=== PATIENT | male | born 1965 | race Caucasian/White ===

== ENCOUNTER 2018-01-31 19:21 | Emergency (ER) | payer BC ==
--- NOTE | 2018-01-31 21:25 | US ---
EXAMINATION TYPE: US venous doppler duplex LE RT DATE OF EXAM: 01/31/2018 8:15 PM COMPARISON: NONE CLINICAL HISTORY: Pain. Right leg swelling SIDE PERFORMED: Right TECHNIQUE: The lower extremity deep venous system is examined utilizing real time linear array sonog lyric with graded compression, doppler sonography and color-flow sonography. VESSELS IMAGED: External Iliac Vein (EIV) Common Femoral Vein Deep Femoral Vein Greater Saphenous Vein * Femoral Vein Popliteal Vein Small Saphenous Vein * Proximal Calf Veins (* superficial vessels) FINDINGS: Grayscale, color doppler, spectral doppler imaging performed of the deep veins of the lower extremities. There is normal flow, compressibility, vascular waveforms. IMPRESSION: NEGATIVE FOR DVT, RIGHT LOWER EXTREMITY.
--- NOTE | 2018-01-31 21:32 | ED ---
Lower Extremity Injury HPI - General Chief Complaint: Extremity Injury, Lower Stated Complaint: leg pain/poss blood clot Time Seen by Provider: 01/31/18 19:54 Source: patient, RN notes reviewed, old records reviewed Mode of arrival: ambulatory Limitations: no limitations - History of Present Illness Initial Comments: Patient 72-year-old male chief complaint of right leg pain. He has history of varicose veins. He feels like his right leg is swelling. He reports that it is worse when he standing for long periods of time. He does work in a place where he is always on his feet. Patient states that he's had no redness. No reason to the leg. - Related Data Home Medications Medication Instructions Recorded Confirmed Atenolol [Tenormin] 50 mg PO DAILY 12/15/14 01/31/18 Lisinopril [Prinivil] 20 mg PO DAILY 12/15/14 01/31/18 Pravastatin Sodium [Pravachol] 20 mg PO DAILY 12/15/14 01/31/18 Allergies Allergy/AdvReac Type Severity Reaction Status Date / Time No Known Allergies Allergy Verified 01/31/18 20:19 Review of Systems ROS Statement: Those systems with pertinent positive or pertinent negative responses have been documented in the HPI. ROS Other: All systems not noted in ROS Statement are negative. Past Medical History Past Medical History: Hyperlipidemia, Hypertension History of Any Multi-Drug Resistant Organisms: None Reported Past Surgical History: Heart Catheterization Additional Past Surgical History / Comment(s): vein stripping right leg Past Psychological History: No Psychological Hx Reported Smoking Status: Never smoker Past Alcohol Use History: None Reported Past Drug Use History: None Reported General Exam - General Exam Comments Initial Comments: Well appearing 52 year old male, no distress. Limitations: no limitations General appearance: alert, in no apparent distress Head exam: Present: atraumatic, normocephalic, normal inspection Eye exam: Present: normal appearance, PERRL, EOMI. Absent: scleral icterus, conjunctival injection, periorbital swelling ENT exam: Present: normal exam, mucous membranes moist Neck exam: Present: normal inspection. Absent: tenderness, meningismus, lymphadenopathy Respiratory exam: Present: normal lung sounds bilaterally. Absent: respiratory distress, wheezes, rales, rhonchi, stridor Cardiovascular Exam: Present: regular rate, normal rhythm, normal heart sounds. Absent: systolic murmur, diastolic murmur, rubs, gallop, clicks GI/Abdominal exam: Present: soft, normal bowel sounds. Absent: distended, tenderness, guarding, rebound, rigid Extremities exam: Present: normal inspection, full ROM, normal capillary refill , other (varicose veins over medial aspect of thigh and leg. ). Absent: tenderness, pedal edema, joint swelling, calf tenderness Back exam: Present: normal inspection Neurological exam: Present: alert, oriented X3, CN II-XII intact Psychiatric exam: Present: normal affect, normal mood Skin exam: Present: warm, dry, intact, normal color. Absent: rash Course Vital Signs 01/31/18 01/31/18 19:28 21:48 Temperature 98.2 F 98.4 F Pulse Rate 79 77 Respiratory 17 18 Rate Blood Pressure 146/78 144/88 O2 Sat by Pulse 98 97 Oximetry Medical Decision Making - Medical Decision Making Patient is a 52 year old male with CC of leg swelling and pain with standing. Patient has multiple varicose veins. He has normal sensation, ROM nad pulses intact. Patient US is negative for DVT. No concern for infection asskin does not show signs of cellulitis. Patient advised to follow up with vascular surgeon. Discussed using compression stockings. Return parameters discussed. - Radiology Data Radiology results: report reviewed US is negative for DVT. Disposition Clinical Impression: Varicose veins of right lower extremity Disposition: HOME SELF-CARE Condition: Good Instructions: Varicose Veins (ED) Additional Instructions: Patient advised to follow-up with primary care provider. Keep leg up and elevated. Return to emergency department if any alarming signs or symptoms occur. Is patient prescribed a controlled substance at d/c from ED?: No When asked, does pt state using other controlled substances?: No If prescribed controlled substance>3 days was MAPS reviewed?: No If opioid is for acute pain is fill amount 7 days or less?: No If Rx opioid, was Start Talking consent form obtained?: No Referrals: Skylar Galindo MD [Primary Care Provider] - 1-2 days Time of Disposition: 21:30
[2018-01-31 21:48] VITALS: BP 144/88; PULSE 77; RESP 18; TEMP 98.4
== END 2018-01-31 21:48 | disposition home or self-care (01) ==
LOC: EC 19:21
DX: I83.811 Varicose veins of right lower extremity with pain (principal); I83.891 Varicose veins of right lower extremity with other complications; E78.5 Hyperlipidemia, unspecified; I10 Essential (primary) hypertension; Z79.899 Other long term (current) drug therapy; Z95.818 Presence of other cardiac implants and grafts
CPT/HCPCS: 99284

== ENCOUNTER 2019-06-22 11:32 | Day surgery (SDC) | payer BC ==
[2019-06-20 17:25] VITALS: BMI 42.7
[2019-06-22 11:49] VITALS: RESP 18; TEMP 97.8
[2019-06-22] MEDS ORDERED: LACTATED RINGERS 1,000 ML IV SCH (11:49)
[2019-06-22] MEDS ORDERED: LIDOCAINE 1% 20 ML VIAL (10MG/ML) FOR IV START INTRADERMA PRN (11:49)
[2019-06-22] MEDS ORDERED: LACTATED RINGERS 1,000 ML IV ONE (11:49)
[2019-06-22] MEDS ORDERED: KETAMINE 10 MG/ML 20 ML VIAL ONE (12:42)
[2019-06-22] MEDS ORDERED: MIDAZOLAM 2 MG/2 ML VIAL ONE (12:42)
[2019-06-22] MEDS ORDERED: fentaNYL (PF) 50 MCG/ML 2 ML AMP ONE (12:42)
[2019-06-22] MEDS ORDERED: PHENYLEPHRINE-0.9% NACL SYG 1 MG/10 ML SYRINGE ONE (12:42)
[2019-06-22] MEDS ORDERED: PROPOFOL 10 MG/ML 20 ML VIAL IV ONE (12:42)
[2019-06-22] MEDS ORDERED: LIDOCAINE 1% INJ 10MG/ML (20 ML MDV) ONE (12:42)
[2019-06-22 13:44] VITALS: PULSE 69
--- NOTE | 2019-06-22 13:53 | P.PCN ---
Date of Procedure: 06/22/19 Description of Procedure: Brief history: Patient is a pleasant scheduled for an elective upper endoscopy as well as colonoscopy as a part of evaluation of epigastric abdominal pain and screening for malignant neoplasm of the colon. Procedure performed: Esophagogastroduodenoscopy with biopsy Colonoscopy with polypectomy and biopsy Estimated blood loss: Minimal. Preoperative diagnosis: Anesthesia: MAC Procedure: After informed consent was obtained from the patient was brought into the endoscopy unit and IV sedation was administered by anesthesia under continuous monitoring. Initially upper endoscopy was done. The Olympus GF 190 video endoscope was inserted inserted into the mouth and esophagus intubated without any difficulty and was gradually advanced into the stomach and duodenum and carefully examined. The bulb and second part of the duodenum appeared normal, With biopsies taken to rule out celiac sprue. The scope was then withdrawn into the stomach adequately insufflated with air and upon careful examination the antrum and body, cardia and fundus appeared normal, Except for some mild scattered erythema in the antrum and body suggestive of gastritis with biopsies taken. The scope was then withdrawn into the esophagus. The GE junction was located at 37 cm to the incisors and biopsied. It appeared regular with no erythema erosions or ulcerations. Rest of the esophagus appeared normal. Patient tolerated the procedure well. At this time the patient continued to remain sedation. Initial digital rectal examination was normal. Olympus CF 190 video colonoscope was then inserted into the rectum and gradually advanced to the cecum without any difficulty. The terminal ileum was intubated and appeared normal with a small benign appearing polyp removed with cold forceps. Careful examination was performed as the scope was gradually being withdrawn. The prep was excellent. The cecum, ascending colon, transverse colon, descending colon, sigmoid colon and rectum appeared normal, With biopsies taken of the right and left colon in the setting of altered bowel habits and diarrhea. Diminutive 2 mm polyp removed from the descending colon and diminutive 1 mm Polyp removed from the sigmoid colon, both with cold forceps polypectomy. Retroflexion was performed in the rectum and no lesions were noted. Patient tolerated the procedure well. Impression: 1. Mild gastritis antrum body, biopsied. Biopsies of the duodenum and GE junction. 2. Diminutive polyps removed from the descending colon and sigmoid colon with cold forceps. Benign-appearing terminal ileal polyp removed with cold forceps. Random biopsies of the right and left colon. Recommendations: Findings of this examination were discussed with the patient as well as his family. Okay to resume diet. Okay to resume medications. Follow-up with gastroenterology clinic as previously scheduled. Anticipate repeat colonoscopy in 5 years for a history of colon polyps, pending pathology from polypectomies. Await pathology from biopsies and polypectomy.
[2019-06-22 14:03] VITALS: BP 97/63
== END 2019-06-22 14:28 | disposition home or self-care (01) ==
LOC: ORWHC2ENDO 11:32
PROVIDERS: ATTEND Internal Medicine
DX: Z12.11 Encounter for screening for malignant neoplasm of colon (principal); K63.5 Polyp of colon; K29.50 Unspecified chronic gastritis without bleeding; I10 Essential (primary) hypertension; E78.5 Hyperlipidemia, unspecified; K21.0 Gastro-esophageal reflux disease with esophagitis; E66.01 Morbid (severe) obesity due to excess calories; Z79.82 Long term (current) use of aspirin; Z79.899 Other long term (current) drug therapy; Z68.41 Body mass index [BMI] 40.0-44.9, adult
CPT/HCPCS: 88305; 45380; 43239; J2250; J2001; J3010; J2370; J2704

== ENCOUNTER → 2022-01-13 | Outpatient (CLI) | payer BC ==
[2022-01-13 14:54] LABS: Chol/HDL Ratio 4.83 Ratio; LDL Cholesterol,Calculated 144.4 mg/dL (0.0-131.0); VLDL Calculation 19.74 mg/dL (5.00-40.00)
== END | disposition home or self-care (01) ==
LOC: LABWHC1 10:16
PROVIDERS: ATTEND Nurse Practitioner
DX: E78.5 Hyperlipidemia, unspecified (principal)
CPT/HCPCS: 36415; 80061; 83036

== ENCOUNTER 2022-05-18 14:17 | Emergency (ER) | payer BC ==
[2022-05-18 14:31] VITALS: TEMP 98.5
[2022-05-18] MEDS ORDERED: DIPH,PERTUS(ACELL)TETVAC-LF 0.5 ML VIAL IM ONE (15:13)
[2022-05-18] MEDS ORDERED: LIDOCAINE 1% INJ 10MG/ML (5 ML VIAL-PF) SQ STA (15:13)
--- NOTE | 2022-05-18 15:38 | ED ---
Wound/Laceration HPI - General Chief Complaint: Wound/Laceration Stated Complaint: Laceration on LFT foot Time Seen by Provider: 05/18/22 15:08 Source: patient, family, RN notes reviewed Mode of arrival: wheelchair Limitations: no limitations - History of Present Illness Initial Comments: Patient is a 56-year-old male presenting to the emergency room after dropping a chainsaw on his left foot. The chainsaw was not actively running when he dropped the chainsaw on his toe however he suffered a significant laceration to his left great toe and a small laceration to the second toe. He is unsure of his tetanus is up-to-date. He reports that the blade on the chainsaw is new and has not been utilized to cut any debris. He reports full range of motion of the toes. He denies any numbness or tingling in the injured foot. He denies any other complaints or concerns. He has a past medical history significant for hypertension, hyperlipidemia and GERD. - Related Data Home Medications Medication Instructions Recorded Confirmed Atenolol [Tenormin] 50 mg PO DAILY 12/15/14 06/20/19 Pravastatin Sodium [Pravachol] 20 mg PO DAILY 12/15/14 06/20/19 lisinopriL [Prinivil] 20 mg PO DAILY 12/15/14 06/20/19 Aspirin 81 mg PO DAILY 06/20/19 06/20/19 Famotidine [Pepcid] 40 mg PO HS 06/20/19 06/20/19 Previous Rx's Medication Instructions Recorded Cephalexin [Keflex] 500 mg PO Q8HR 5 Days #15 cap 05/18/22 Allergies Allergy/AdvReac Type Severity Reaction Status Date / Time No Known Allergies Allergy Verified 05/18/22 14:31 Review of Systems ROS Statement: Those systems with pertinent positive or pertinent negative responses have been documented in the HPI. ROS Other: All systems not noted in ROS Statement are negative. Past Medical History Past Medical History: GERD/Reflux, Hyperlipidemia, Hypertension History of Any Multi-Drug Resistant Organisms: None Reported Past Surgical History: Heart Catheterization Additional Past Surgical History / Comment(s): vein stripping right leg x2 Past Anesthesia/Blood Transfusion Reactions: No Reported Reaction Past Psychological History: No Psychological Hx Reported Past Alcohol Use History: None Reported Past Drug Use History: None Reported General Exam Limitations: no limitations General appearance: alert, in no apparent distress Head exam: Present: atraumatic, normocephalic, normal inspection Eye exam: Present: normal appearance, PERRL, EOMI. Absent: scleral icterus, conjunctival injection, periorbital swelling ENT exam: Present: normal exam, mucous membranes moist Neck exam: Present: normal inspection Respiratory exam: Absent: respiratory distress, accessory muscle use Left Foot/Toe exam: Present: full ROM, tenderness, laceration. Absent: swelling, deformity, crepitus, dislocation, amputation, nail avulsion Neurovascular tendon exam: Present: no vascular compromise Gait: observed and limited by pain Back exam: Present: normal inspection Neurological exam: Present: alert, oriented X3, CN II-XII intact Psychiatric exam: Present: normal affect, normal mood Skin exam: Present: other (laceration) Course Vital Signs 05/18/22 05/18/22 14:27 16:36 Temperature 98.5 F Pulse Rate 80 79 Respiratory 16 20 Rate Blood Pressure 131/84 149/90 O2 Sat by Pulse 97 98 Oximetry Procedures - Laceration Laceration #1 Consent Obtained: verbal consent Indication: laceration Site: foot (left great toe) Size (cm): 3 Description: linear Depth: simple, single layer Anesthesia Technique: local infiltration Pre-repair: wound explored, irrigated extensively Type of Sutures: nylon Size of Sutures: 4-0 Number of Sutures: 5 Technique: simple, interrupted Patient Tolerated Procedure: well, no complications Laceration #2 Consent Obtained: verbal consent Indication: laceration Site: foot (left 2nd toe) Size (cm): 1 Description: linear Anesthetic Used: lidocaine 1% Anesthesia Technique: local infiltration Pre-repair: wound explored Type of Sutures: nylon Size of Sutures: 4-0 Number of Sutures: 1 Patient Tolerated Procedure: well, no complications Medical Decision Making - Medical Decision Making 56 year old male presenting to the ER after dropping a chain saw that was not operating on his left foot; laceration to left great toe and 2nd digit. Due to mechanism of action will check x-ray of left toes. Will update TDap and plan for closure of laceration to great toe and further evaluation of laceration to second digit with suture closure if needed. No indication for laboratory studies. X-ray negative for fracture or foreign body. Laceration to left great toe closed without complication. One suture placed in small laceration to left second toe. Patient reports dirty cloth covered in debris place to stop bleeding upon initial injury and he is concerned regarding infection. Discussed low probability of infection given quick washout however will give empiric course of oral antibiotics. No indication for IV antibiotics here at the hospital. Wound care and return to work parameters reviewed. Advise follow-up with primary care provider in 7-10 days for suture removal. Case discussed with Dr. Cespedes. - Radiology Data Radiology results: report reviewed, image reviewed X-ray left toes mild first MTP joint arthritis. No acute osseous abnormality seen. Disposition Clinical Impression: Laceration Disposition: HOME SELF-CARE Condition: Stable Instructions (If sedation given, give patient instructions): Care For Your Stitches (DC), Laceration (ED) Additional Instructions: Please keep wound clean and dry. Please follow-up with your primary care provider for suture removal in 7-10 days. 3 tetanus vaccine has been updated today and is good for the next 10 years. Please complete course of antibiotics for infection prevention. Please seek medical attention as appropriate for any signs or symptoms of infection. Please return to the Emergency Department if symptoms worsen or any other concerns. Prescriptions: Cephalexin [Keflex] 500 mg PO Q8HR 5 Days #15 cap Is patient prescribed a controlled substance at d/c from ED?: No Referrals: Larissa Linton [Nurse Mopper] - 1-2 days Time of Disposition: 16:24
--- NOTE | 2022-05-18 16:00 | XR ---
EXAMINATION TYPE: XR toes LT DATE OF EXAM: 05/18/2022 COMPARISON: NONE HISTORY: 56-year-old male laceration, chainsaw blade across top of toes, mainly the great toe. Pain. TECHNIQUE: 3 views coned-down forefoot FINDINGS: Mild degenerative spurring first MTP joint. Lateral view limited due to prominent osseous o verlap. No acute fracture, subluxation, or dislocation is seen. No retained radiopaque foreign body i s seen. IMPRESSION: Lateral view limited due to excessive osseous overlap. Mild first MTP joint OA. No acute osseous abno rmality seen.
[2022-05-18 16:38] VITALS: BP 149/90; PULSE 79; RESP 20
== END 2022-05-18 16:38 | disposition home or self-care (01) ==
LOC: EC 14:17
DX: S91.312A Laceration without foreign body, left foot, initial encounter (principal); E78.5 Hyperlipidemia, unspecified; I10 Essential (primary) hypertension; Z23 Encounter for immunization; W31.2XXA Contact with powered woodworking and forming machines, initial encounter
CPT/HCPCS: 73660; 90715; 12002; 99282; 90471; J2001